=== PATIENT | male | born 1990 | race Caucasian/White ===

== ENCOUNTER 2021-05-26 16:43 | Inpatient (IN) | payer MEDICAID, OTHER ==
[~2021-05-26] VITALS: Ht 180.3 cm; Wt 96.8 kg
[2021-05-26] MEDS ORDERED: HYDROmorphone HCL 2 MG/ML VL IV ONE (17:15)
[2021-05-26] MEDS ORDERED: SODIUM CHLORIDE 0.9% 1,000 ML IV ONE (17:15)
[2021-05-26] MEDS ORDERED: PROMETHAZINE HCL 25 MG/ML 1ML IV ONE (17:15)
[2021-05-26 18:00] LABS: Basophils # (auto) 0.1 10 ^3/uL (0-0.2); Basophils % (auto) 0.5 % (0.0-2.0); Eosinophils # (auto) 0.1 10 ^3/uL (0-0.8); Eosinophils % (auto) 1.1 % (0.0-7.0); Hematocrit 34.7 % (41.0-53.0); Hemoglobin 11.6 g/dL (13.5-17.5); Lymphocytes # (auto) 1.2 10 ^3/uL (0.4-5.4); Lymphocytes % (auto) 10.1 % (10.0-50.0); Mean Corpuscular Hemoglobin 29.5 pg (28.0-32.0); Mean Corpuscular Hgb Conc. 33.5 g/dL (32.0-36.0); Monocytes # (auto) 0.6 10 ^3/uL (0-1.3); Monocytes % (auto) 4.7 % (0.0-12.0); Neutrophils # (auto) 10.2 10 ^3/uL (1.6-8.6); Neutrophils % (auto) 83.6 % (37.0-80.0); Red Blood Cells 3.94 10^6/uL (4.5-5.90); Red Cell Distribution Width 14.8 % (11.8-14.3); White Blood Cell 12.2 10^3/uL (4.4-10.8)
[2021-05-26 18:13] LABS: Albumin 3.5 g/dL (3.4-5.0); Calcium 8.6 mg/dL (8.5-10.1); Magnesium 2.1 mg/dL (1.6-2.6); Potassium 3.4 mmol/L (3.5-5.1)
[2021-05-26 18:16] LABS: Bilirubin, Total 0.3 mg/dL (0.2-1.0); Total Protein 7.4 g/dL (6.4-8.2)
[2021-05-26 18:21] LABS: INR 1.04 (0.9-1.15); Partial Thromboplastin Time 24.4 sec (23.6-33.0)
[2021-05-26] MEDS ORDERED: HYDROcodone-ACET 5/325MG TAB PO PRN (21:00)
[2021-05-26] MEDS ORDERED: POTASSIUM CHL 20 Meq TABLET PO ONE (21:00)
[2021-05-26] MEDS ORDERED: ACETAMINOPHEN 325 MG TAB PO PRN (21:00)
[2021-05-26] MEDS ORDERED: DOCUSATE SOD 100 MG CAP PO PRN (21:00)
[2021-05-26] MEDS ORDERED: ONDANSETRON HCL 4 MG/2 ML VIAL IV PRN (21:00)
[2021-05-26] MEDS ORDERED: DEXTROSE (50%) 50ML SYRG IV PRN (21:00)
[2021-05-26] MEDS: ACCU-CHEK COMFORT CURVE STRIP VI SCH (22:00)
[2021-05-26] MEDS: InsuLIN REG 1unit/0.01ml Soln (100units/ml) SC SCH (22:00)
[2021-05-26] MEDS: METOPROLOL TARTRATE 50 MG TAB PO SCH (22:12)
[2021-05-26] MEDS: MORPHINE SULFATE 4 MG/ML SYR/VIAL IV PRN (22:13)
[2021-05-26] MEDS ORDERED: NITROGLYCERIN 0.4 MG SL TAB SL PRN (22:30)
[2021-05-26] MEDS ORDERED: MORPHINE SULFATE INJECTION 2 MG/ML SYRG IV PRN (22:30)
[2021-05-26] MEDS: hydrALAZINE HCL 20 MG/ML VL IV PRN (23:16)
[2021-05-27] MEDS ORDERED: amLODIPine BESYLATE 5 MG TAB PO ONE (01:30)
[2021-05-27] MEDS: cloNIDine HCL 0.1 MG TAB PO PRN ×2 (01:33→17:22)
[2021-05-27] MEDS: MORPHINE SULFATE 4 MG/ML SYR/VIAL IV PRN ×4 (03:10→20:17)
[2021-05-27 04:40] VITALS: BP 146/89
[2021-05-27 04:41] VITALS: BP 146/89
[2021-05-27] MEDS ORDERED: INSU100I51 SC (04:41)
[2021-05-27] MEDS ORDERED: ENAL10TA12 PO (04:41)
[2021-05-27] MEDS ORDERED: INSU1INJ19 SC (04:41)
[2021-05-27] MEDS: ACCU-CHEK COMFORT CURVE STRIP VI SCH ×4 (06:38→21:49)
[2021-05-27] MEDS: InsuLIN REG 1unit/0.01ml Soln (100units/ml) SC SCH ×4 (06:40→22:00)
[2021-05-27 08:09] LABS: Basophils # (auto) 0 10 ^3/uL (0-0.2); Basophils % (auto) 0.5 % (0.0-2.0); Eosinophils # (auto) 0 10 ^3/uL (0-0.8); Eosinophils % (auto) 0.2 % (0.0-7.0); Hematocrit 31.7 % (41.0-53.0); Hemoglobin 10.9 g/dL (13.5-17.5); Lymphocytes % (auto) 9.4 % (10.0-50.0); Mean Corpuscular Hemoglobin 30.7 pg (28.0-32.0); Mean Corpuscular Hgb Conc. 34.4 g/dL (32.0-36.0); Mean Corpuscular Volume 89.3 fL (80.0-100.0); Monocytes # (auto) 0.7 10 ^3/uL (0-1.3); Monocytes % (auto) 6.4 % (0.0-12.0); Neutrophils # (auto) 8.7 10 ^3/uL (1.6-8.6); Neutrophils % (auto) 83.5 % (37.0-80.0); Red Blood Cells 3.55 10^6/uL (4.5-5.90); Red Cell Distribution Width 15.1 % (11.8-14.3); White Blood Cell 10.4 10^3/uL (4.4-10.8)
[2021-05-27 08:25] LABS: Albumin 2.9 g/dL (3.4-5.0); Calcium 8.1 mg/dL (8.5-10.1); Potassium 4.2 mmol/L (3.5-5.1)
[2021-05-27 08:29] LABS: BUN/Creatinine Ratio 17.7; Bilirubin, Total 0.6 mg/dL (0.2-1.0); Total Protein 6.8 g/dL (6.4-8.2)
[2021-05-27] MEDS: cefTRIAXone 1GM/50ML D5W 50 ML IV SCH (09:00)
[2021-05-27] MEDS ORDERED: ENOXAPARIN SOD 40 MG/0.4 ML SYRINGE SC SCH ×2 (09:00→10:00)
[2021-05-27 09:12] VITALS: BP 166/101
[2021-05-27] MEDS: METOPROLOL TARTRATE 50 MG TAB PO SCH ×2 (10:00→21:49)
[2021-05-27] MEDS: amLODIPine BESYLATE 5 MG TAB PO SCH (10:00)
[2021-05-27] MEDS: FAMOTIDINE (10MG/ML) 2ML VL IV SCH (10:00)
[2021-05-27 13:10] VITALS: BP 163/89
[2021-05-27 17:56] VITALS: BP 166/116
[2021-05-27 22:00] VITALS: BP 152/91
[2021-05-28] VITALS (10 sets, daily range): BP systolic 145–159; BP diastolic 71–87
[2021-05-28] MEDS: MORPHINE SULFATE 4 MG/ML SYR/VIAL IV PRN ×3 (00:23→08:56)
[2021-05-28] MEDS: hydrALAZINE HCL 20 MG/ML VL IV PRN (04:52)
[2021-05-28] MEDS: InsuLIN REG 1unit/0.01ml Soln (100units/ml) SC SCH ×4 (06:51→21:32)
[2021-05-28] MEDS: ACCU-CHEK COMFORT CURVE STRIP VI SCH ×4 (06:52→21:29)
[2021-05-28] MEDS: cefTRIAXone 1GM/50ML D5W 50 ML IV SCH (08:53)
[2021-05-28] MEDS: FAMOTIDINE (10MG/ML) 2ML VL IV SCH (10:01)
[2021-05-28] MEDS: PANTOPRAZOLE 40 MG/10 ML VIAL INJ IV SCH (10:01)
[2021-05-28] MEDS: METOPROLOL TARTRATE 50 MG TAB PO SCH ×2 (10:02→21:29)
[2021-05-28] MEDS: amLODIPine BESYLATE 5 MG TAB PO SCH (10:03)
[2021-05-28] MEDS ORDERED: ceFAZolin 1GM/50ML 100 ML IV ONE (13:15)
[2021-05-28] MEDS ORDERED: MORPHINE SULF PF 2 MG/2 ML SYRG ONE (14:37)
[2021-05-28] MEDS ORDERED: fentaNYL CITRATE 100 MCG/2 ML VL ONE (14:37)
[2021-05-28] MEDS ORDERED: MIDAZOLAM HCL 2MG/2ML 2ml VIAL (1mg/ml) ONE (14:37)
[2021-05-28] MEDS ORDERED: KETAMINE HCL 10 ML ONE (14:38)
[2021-05-28] MEDS ORDERED: PROPOFOL 10 MG/ML 20 ML IV ONE (14:40)
[2021-05-28] MEDS ORDERED: ePHEDrine SULFATE 50 MG/ML AMP ONE (14:40)
[2021-05-28] MEDS ORDERED: GLYCOPYRROLATE 0.2 MG/ML 1ML VIAL ONE (14:40)
[2021-05-28] MEDS ORDERED: ONDANSETRON HCL 4 MG/2 ML VIAL ONE (14:40)
[2021-05-28] MEDS ORDERED: LIDOCAINE 2% (LOCAL ANESTH.) PF 5ml SDV ONE (14:40)
[2021-05-28] MEDS ORDERED: BUPIVACAINE 0.5% P/F INJ 10 ML VIAL ONE (14:44)
[2021-05-28] MEDS: LACTATED RINGER'S 1,000 ML IV SCH (16:15)
[2021-05-28] MEDS ORDERED: DexAMETHasone SOD PHOS 10MG/1ML VIAL INJ IV PRN (16:45)
[2021-05-28] MEDS ORDERED: NALOXONE HCL 0.4 MG/ML VIAL IV PRN (16:45)
[2021-05-28] MEDS ORDERED: diphenhdrAMINE HCL 50 MG/1 ML VL IV PRN (16:45)
[2021-05-28] MEDS ORDERED: ACCU-CHEK COMFORT CURVE STRIP VI ONE (16:45)
[2021-05-28] MEDS ORDERED: ONDANSETRON HCL 4 MG/2 ML VIAL IV PRN ×2 (16:45)
[2021-05-28] MEDS: ceFAZolin 1GM/50ML 50 ML IV SCH (20:08)
[2021-05-28] MEDS: INSULIN LANTUS (GLARGINE) 1 /0.01ml (100units/ml) SC SCH (20:09)
[2021-05-28] MEDS: DOCUSATE SOD 100 MG CAP PO SCH (21:28)
[2021-05-28] MEDS: cloNIDine HCL 0.1 MG TAB PO PRN (22:11)
[2021-05-29] VITALS (19 sets, daily range): BP systolic 126–152; BP diastolic 71–93
[2021-05-29] MEDS: ceFAZolin 1GM/50ML 50 ML IV SCH ×2 (01:57→08:53)
[2021-05-29 05:38] LABS: Basophils # (auto) 0 10 ^3/uL (0-0.2); Basophils % (auto) 0.3 % (0.0-2.0); Eosinophils # (auto) 0 10 ^3/uL (0-0.8); Eosinophils % (auto) 0.2 % (0.0-7.0); Hematocrit 28.7 % (41.0-53.0); Hemoglobin 9.9 g/dL (13.5-17.5); Lymphocytes # (auto) 0.9 10 ^3/uL (0.4-5.4); Lymphocytes % (auto) 8.6 % (10.0-50.0); Mean Corpuscular Hemoglobin 30.6 pg (28.0-32.0); Mean Corpuscular Hgb Conc. 34.4 g/dL (32.0-36.0); Mean Corpuscular Volume 88.9 fL (80.0-100.0); Monocytes # (auto) 0.8 10 ^3/uL (0-1.3); Monocytes % (auto) 7.6 % (0.0-12.0); Neutrophils % (auto) 83.3 % (37.0-80.0); Red Blood Cells 3.23 10^6/uL (4.5-5.90); Red Cell Distribution Width 14.7 % (11.8-14.3); White Blood Cell 10.9 10^3/uL (4.4-10.8)
[2021-05-29 05:52] LABS: Albumin 2.5 g/dL (3.4-5.0); Calcium 8.3 mg/dL (8.5-10.1); Magnesium 2.1 mg/dL (1.6-2.6); Potassium 4.1 mmol/L (3.5-5.1)
[2021-05-29 05:54] LABS: BUN/Creatinine Ratio 22.7
[2021-05-29 05:57] LABS: Bilirubin, Total 0.6 mg/dL (0.2-1.0); Total Protein 6.6 g/dL (6.4-8.2)
[2021-05-29] MEDS: LACTATED RINGER'S 1,000 ML IV SCH (06:24)
[2021-05-29] MEDS: ACCU-CHEK COMFORT CURVE STRIP VI SCH ×4 (06:48→22:21)
[2021-05-29] MEDS: InsuLIN REG 1unit/0.01ml Soln (100units/ml) SC SCH ×4 (06:51→22:23)
[2021-05-29] MEDS: INSULIN LANTUS (GLARGINE) 1 /0.01ml (100units/ml) SC SCH ×2 (10:00→22:24)
[2021-05-29] MEDS: DOCUSATE SOD 100 MG CAP PO SCH ×2 (10:06→22:00)
[2021-05-29] MEDS: amLODIPine BESYLATE 5 MG TAB PO SCH (10:07)
[2021-05-29] MEDS: FAMOTIDINE (10MG/ML) 2ML VL IV SCH (10:07)
[2021-05-29] MEDS: PANTOPRAZOLE 40 MG/10 ML VIAL INJ IV SCH (10:07)
[2021-05-29] MEDS: METOPROLOL TARTRATE 50 MG TAB PO SCH ×2 (10:07→22:21)
[2021-05-29] MEDS: KETOROLAC TROMETH 30 MG/ML 1ML VIAL IV PRN ×2 (10:08→22:35)
[2021-05-29] MEDS: ENOXAPARIN SOD 40 MG/0.4 ML SYRINGE SC SCH (10:09)
[2021-05-29] MEDS: cefTRIAXone 1GM/50ML D5W 50 ML IV SCH (10:09)
[2021-05-30 04:30] VITALS: BP 142/89
[2021-05-30 05:54] LABS: Basophils # (auto) 0 10 ^3/uL (0-0.2); Basophils % (auto) 0.4 % (0.0-2.0); Eosinophils # (auto) 0.1 10 ^3/uL (0-0.8); Eosinophils % (auto) 1.6 % (0.0-7.0); Hematocrit 28.4 % (41.0-53.0); Hemoglobin 9.6 g/dL (13.5-17.5); Lymphocytes # (auto) 1.1 10 ^3/uL (0.4-5.4); Lymphocytes % (auto) 15.7 % (10.0-50.0); Mean Corpuscular Volume 88.2 fL (80.0-100.0); Monocytes # (auto) 0.6 10 ^3/uL (0-1.3); Neutrophils # (auto) 5.3 10 ^3/uL (1.6-8.6); Neutrophils % (auto) 73.3 % (37.0-80.0); Red Blood Cells 3.22 10^6/uL (4.5-5.90); Red Cell Distribution Width 14.5 % (11.8-14.3); White Blood Cell 7.2 10^3/uL (4.4-10.8)
[2021-05-30 06:17] LABS: Potassium 3.8 mmol/L (3.5-5.1)
[2021-05-30 06:26] LABS: Albumin 2.3 g/dL (3.4-5.0); BUN/Creatinine Ratio 23.3; Bilirubin, Total 0.6 mg/dL (0.2-1.0); Calcium 8.3 mg/dL (8.5-10.1); Total Protein 6.3 g/dL (6.4-8.2)
[2021-05-30] MEDS: ACCU-CHEK COMFORT CURVE STRIP VI SCH ×5 (06:34→22:16)
[2021-05-30] MEDS: InsuLIN REG 1unit/0.01ml Soln (100units/ml) SC SCH ×4 (06:35→23:09)
[2021-05-30 08:00] VITALS: BP 142/98
[2021-05-30 09:00] VITALS: BP 142/98
[2021-05-30] MEDS: cefTRIAXone 1GM/50ML D5W 50 ML IV SCH (09:14)
[2021-05-30] MEDS: PANTOPRAZOLE 40 MG/10 ML VIAL INJ IV SCH (09:14)
[2021-05-30] MEDS: ENOXAPARIN SOD 40 MG/0.4 ML SYRINGE SC SCH (09:14)
[2021-05-30] MEDS: FAMOTIDINE (10MG/ML) 2ML VL IV SCH (09:15)
[2021-05-30] MEDS: amLODIPine BESYLATE 5 MG TAB PO SCH (09:15)
[2021-05-30] MEDS: METOPROLOL TARTRATE 50 MG TAB PO SCH ×2 (09:16→22:15)
[2021-05-30] MEDS: DOCUSATE SOD 100 MG CAP PO SCH ×2 (09:16→22:15)
[2021-05-30] MEDS: MORPHINE SULFATE 4 MG/ML SYR/VIAL IV PRN (09:29)
[2021-05-30 12:44] VITALS: BP 139/75
[2021-05-30] MEDS: KETOROLAC TROMETH 30 MG/ML 1ML VIAL IV PRN (13:48)
[2021-05-30] MEDS ORDERED: DEXTROSE (50%) 50ML SYRG IV PRN (18:00)
[2021-05-30 22:00] VITALS: BP 149/85
[2021-05-30] MEDS: INSULIN LANTUS (GLARGINE) 1 /0.01ml (100units/ml) SC SCH (23:09)
[2021-05-31 05:00] VITALS: BP 151/78
[2021-05-31] MEDS: KETOROLAC TROMETH 30 MG/ML 1ML VIAL IV PRN ×3 (05:31→22:12)
[2021-05-31 05:36] LABS: Hematocrit 25.8 % (41.0-53.0); Hemoglobin 8.8 g/dL (13.5-17.5)
[2021-05-31] MEDS: ACCU-CHEK COMFORT CURVE STRIP VI SCH ×4 (06:44→22:14)
[2021-05-31] MEDS: InsuLIN REG 1unit/0.01ml Soln (100units/ml) SC SCH ×4 (06:48→22:40)
[2021-05-31 09:06] VITALS: BP 141/79
[2021-05-31] MEDS: cefTRIAXone 1GM/50ML D5W 50 ML IV SCH (09:56)
[2021-05-31] MEDS: amLODIPine BESYLATE 5 MG TAB PO SCH (09:57)
[2021-05-31] MEDS: DOCUSATE SOD 100 MG CAP PO SCH ×2 (09:58→22:13)
[2021-05-31] MEDS: METOPROLOL TARTRATE 50 MG TAB PO SCH ×2 (09:58→22:13)
[2021-05-31] MEDS: OXYCODONE W/ ACETAMINOPHEN 5/325MG TABLET PO PRN (09:59)
[2021-05-31] MEDS: ENOXAPARIN SOD 40 MG/0.4 ML SYRINGE SC SCH (09:59)
[2021-05-31] MEDS: PANTOPRAZOLE 40 MG/10 ML VIAL INJ IV SCH (11:09)
[2021-05-31 12:55] VITALS: BP 138/78
[2021-05-31 16:35] VITALS: BP 140/86
[2021-05-31 22:00] VITALS: BP 150/96
[2021-05-31] MEDS: hydrALAZINE HCL 20 MG/ML VL IV PRN (22:12)
[2021-05-31] MEDS: INSULIN LANTUS (GLARGINE) 1 /0.01ml (100units/ml) SC SCH (22:40)
[2021-06-01 05:00] VITALS: BP 146/84
[2021-06-01] MEDS: ACCU-CHEK COMFORT CURVE STRIP VI SCH ×3 (06:29→17:00)
[2021-06-01] MEDS: InsuLIN REG 1unit/0.01ml Soln (100units/ml) SC SCH ×3 (06:30→17:00)
[2021-06-01 08:57] VITALS: BP 160/83
[2021-06-01] MEDS ORDERED: INSULIN LANTUS (GLARGINE) 1 /0.01ml (100units/ml) SC SCH (10:00)
[2021-06-01] MEDS: PANTOPRAZOLE 40 MG/10 ML VIAL INJ IV SCH (10:00)
[2021-06-01] MEDS: OXYCODONE W/ ACETAMINOPHEN 5/325MG TABLET PO PRN ×2 (10:03→14:48)
[2021-06-01] MEDS: METOPROLOL TARTRATE 50 MG TAB PO SCH (10:04)
[2021-06-01] MEDS: amLODIPine BESYLATE 5 MG TAB PO SCH (10:05)
[2021-06-01] MEDS: DOCUSATE SOD 100 MG CAP PO SCH (10:05)
[2021-06-01] MEDS: ENOXAPARIN SOD 40 MG/0.4 ML SYRINGE SC SCH (10:07)
[2021-06-01] MEDS: cefTRIAXone 1GM/50ML D5W 50 ML IV SCH (10:08)
[2021-06-01 13:00] VITALS: BP 136/91
[2021-06-01 16:25] VITALS: BP 125/73
== END 2021-06-01 20:22 | disposition home health service (06) | DRG 308 ==
LOC: EDBD 16:43 → ER 16:43 → OVERFLOW 22:23 → CENTRAL 05-27 00:21
PROVIDERS: ADMIT Nurse Practitioner Family; ATTEND Nurse Practitioner
PROC: 0QS704Z Reposition Left Upper Femur with Internal Fixation Device, Open Approach (ICD-10-PCS; principal; 2021-05-28 14:45)
DX: S72.22XA Displaced subtrochanteric fracture of left femur, initial encounter for closed fracture (principal); E10.59 Type 1 diabetes mellitus with other circulatory complications; E10.319 Type 1 diabetes mellitus with unspecified diabetic retinopathy without macular edema; D72.829 Elevated white blood cell count, unspecified; E87.6 Hypokalemia; Z20.822 Contact with and (suspected) exposure to COVID-19; I10 Essential (primary) hypertension; V00.131A Fall from skateboard, initial encounter; Y93.51 Activity, roller skating (inline) and skateboarding; Z79.4 Long term (current) use of insulin; Z88.2 Allergy status to sulfonamides; Y92.89 Other specified places as the place of occurrence of the external cause
CPT/HCPCS: 36415; 71045; 72192; 73502; 76001; 80053; 82962; 83036; 83735; 85014; 85018; 85025; 85610; 85730; 86850; 86900; 86901; 87426; 93005; 96361; 96374; 96375; 96376; 97110; 97116; 97163; 97530; A4565; C9113; G0378; J0690; J0696; J1815; J1885; J2001; J2250; J2405; J2704; J3490